=== PATIENT | female | born 1940 | race Caucasian/White ===

== ENCOUNTER 2016-05-31 20:16 | Emergency (ER) | payer MEDICARE, BC ==
[~2016-05-31] VITALS: Ht 154.9 cm; Wt 78.0 kg
[2016-05-31 20:35] VITALS: Ht 154.9 cm; Wt 78.0 kg
[2016-05-31] MEDS ORDERED: SOD CHLORIDE 0.9% 1,000 ML IV STA (23:16)
[2016-05-31] MEDS ORDERED: morphine 4 MG/ML VIAL IV STA (23:16)
[2016-05-31] MEDS ORDERED: ONDANSETRON 4 MG INJ IV STA (23:16)
[2016-06-01 00:39] LABS: ALBUMIN 4.8 g/dl (3.3-4.9)
[2016-06-01 00:40] LABS: POTASSIUM 3.9 mmol/L (3.5-5.1)
[2016-06-01 00:42] LABS: ADD UMIC YES; URINE BILIRUBIN (Dip) NEGATIVE (NEGATIVE); URINE BLOOD (Dip) 2+ (NEGATIVE); URINE COLOR LT. YELLOW (YELLOW); URINE GLUCOSE (Dip) NEGATIVE (NEGATIVE); URINE KETONES (Dip) TRACE (NEGATIVE); URINE LEUKOCYTE ESTERASE (Dip) TRACE (NEGATIVE); URINE NITRITE (Dip) NEGATIVE (NEGATIVE); URINE TOTAL PROTEIN (Dip) 1+ (NEGATIVE); URINE UROBILINOGEN (Dip) 0.2 E.U./dL (0.1-1.0)
[2016-06-01 00:42] LABS: ALBUMIN/GLOBULIN RATIO 1.23; BILIRUBIN,INDIRECT 0.6 mg/dl (0-1.1); BILIRUBIN,TOTAL 0.6 mg/dl (0.2-1.3); CREATININE 0.49 mg/dl (0.44-1.00); TOTAL PROTEIN 8.7 g/dl (6.1-8.1)
[2016-06-01 00:43] LABS: CALCIUM 9.9 mg/dl (8.4-10.2)
--- NOTE | 2016-06-01 00:53 | RADRPT ---
PROCEDURE: CT Abdomen and Pelvis without contrast. CLINICAL INDICATION: Pain. TECHNIQUE: CT scan of the abdomen and pelvis was performed on a multidetector slice CT scanner. N o intravenous contrast material was utilized. Sagittal and coronal reformatted images were obtained from the axial source images. Images were reviewed on a high-resolution PACS workstation. Exam CTDl vol = 15 mGy and DLP = 189 Gy-cm. COMPARISON: None. FINDINGS: There is no obstruction or ileus. The appendix is visualized and is normal in size. There is no ev idence for acute appendicitis. There is diffuse left and sigmoid colon diverticulosis without evide nce for diverticulitis. There is no free fluid. The liver is overall normal in size. No intrahepatic lesions are identified. Multiple calcified gal lstones are present within the gallbladder. The gallbladder is otherwise normal in appearance. There is no definite biliary ductal dilation. Pancreas is normal in appearance. Spleen is unremarkable. . There are no adrenal masses. The aorta is normal caliber. Kidneys are normal in appearance without hydronephrosis, mass or calculus. Ureters are of normal ca liber. Urinary bladder is partially contracted with nonspecific wall thickening.. Uterus unremarkable. Ovaries are not distinctly visualized. There are degenerative changes of the lumbar spine. Limited evaluation lung bases is unremarkable. IMPRESSION: 1. The left and sigmoid colon diverticulosis without evidence for acute diverticulitis. 2. No evidence for appendicitis. 3. No bowel obstruction or ileus. 4. Cholelithiasis. No CT evidence for acute cholecystitis for the biliary obstruction. 5. No obstructive uropathy. Partially contracted urinary bladder with nonspecific wall thickening. 6. Degenerative changes of the lumbar spine. RPTAT: HMVK .Juve Matias MD, MD Date Time Electronically viewed and signed by .Juve Matias MD, MD on 06/01/2016 00:52 .K/
[2016-06-01 01:12] LABS: BASOPHILS % 0.4 % (0.0-2.0); EOSINOPHILS % 0.2 % (0.0-7.0); HEMATOCRIT 42.3 % (37.0-47.0); HEMOGLOBIN 14.3 g/dl (12.0-16.0); LYMPHOCYTES # 0.8 10^3/ul (0.8-2.9); LYMPHOCYTES % 11.9 % (15.0-51.0); MEAN CORPUSCULAR HEMOGLOBIN 29.6 pg (29.0-33.0); MEAN CORPUSCULAR HGB CONC 33.9 g/dl (32.0-37.0); MEAN CORPUSCULAR VOLUME 87.5 fl (82.0-101.0); MEAN PLATELET VOLUME 7.8 fl (7.4-10.4); MONOCYTE # 0.3 10^3/ul (0.3-0.9); MONOCYTES % 4.6 % (0.0-11.0); NEUTROPHIL # 5.9 10^3/ul (1.6-7.5); NEUTROPHILS % 82.9 % (39.0-77.0); PLATELET COUNT 236 10^3/UL (140-440); RED BLOOD COUNT 4.83 10^6/ul (4.20-5.40); RED CELL DISTRIBUTION WIDTH 13.2 % (11.5-14.5); UNCORRECTED WBC 7.1 10^3/ul (4.8-10.8); WHITE BLOOD COUNT 7.1 10^3/ul (4.8-10.8)
[2016-06-01 01:16] LABS: CONDITION 1
[2016-06-01 01:18] LABS: SQUAMOUS EPITHELIAL CELL,UR FEW
[2016-06-01 01:19] LABS: BACTERIA,URINE MANY
--- NOTE | 2016-06-01 01:28 | ERD ---
ER Documentation Chief Complaint Date/Time DATE: 06/01/16 TIME: 01:23 Chief Complaint BACK PAIN X 1 DAY, WORSE TODAY AND WITH VOMITING; LAST ADVIL AT 1930. HPI Patient is a 75-year-old female here with son who presents to the ED with left low back pain that started yesterday. She states that she has had non-bloody non-bilious emesis today. She denies trauma. She states that the pain radiates to the front. She denies headache, dizziness or weakness. She denies chest pain, cough, shortness of breath or difficulty breathing. She denies urinary incontinence. She denies problems urinating or having a bowel movement. She denies constipation or diarrhea. She has had a bowel movement today and is passing gas. She states that she has had a previous UTI. She denies urinary symptoms, denies hematuria. No other complaints today. She has not taken any medication for her symptoms. ROS All systems reviewed and are negative except as per history of present illness. Medications Home Meds Active Scripts Acetaminophen* (Tylophen*) 500 Mg Capsule, 1 CAP PO Q6H Y for PAIN AND OR ELEVATED TEMP, #20 CAP Prov:JITENDRA VANN PA-C 06/01/16 Cephalexin* (Keflex*) 500 Mg Capsule, 500 MG PO QID for 5 Days, CAP Prov:JITENDRA VANN PA-C 06/01/16 Allergies Allergies: Coded Allergies: No Known Allergy (Unverified , 05/31/16) PMhx/Soc Medical and Surgical Hx: pt denies Medical Hx, pt denies Surgical Hx Hx Alcohol Use: No Hx Substance Use: No Hx Tobacco Use: No Smoking Status: Never smoker Physical Exam Vitals Vital Signs Date Time Temp Pulse Resp B/P Pulse Ox O2 Delivery O2 Flow Rate FiO2 06/01/16 02:19 98.0 62 20 157/72 98 Room Air 05/31/16 20:35 98.6 72 20 176/86 98 Physical Exam GENERAL: Well-developed, well-nourished female. Appears in no acute distress. HEAD: Normocephalic, atraumatic. NECK: Supple. No lymphadenopathy or thyromegaly. No meningismus. negative kernig. negative brudinski. LUNG: Clear to auscultation bilaterally. No rhonchi, wheezing, rales or coarse breath sounds. HEART: Regular rate and rhythm. No murmurs, rubs or gallops. ABDOMEN: No scars, ecchymosis or rashes noted. Soft, nontender, and nondistended. Positive bowel sounds in all four quadrants. No rebound tenderness , no guarding. (-) McBurneys point tenderness. Mild left CVA tenderness BACK: No midline tenderness. No step-offs deformities or signs of infection Extremities: Equal pulses bilaterally. No peripheral clubbing, cyanosis or edema. No unilateral leg swelling. Negative Homans sign NEUROLOGIC: Alert and oriented. Moving all four extremities. 5/5 strength in all extremities. Normal speech. Steady gait. SKIN: Normal color. Warm and dry. No rashes or lesions. Capillary refill < 2 seconds Result Diagram: 05/31/168 05/31/168 Results 24 hrs Laboratory Tests Test 05/31/16 23:45 05/31/16 23:48 Urine Bacteria MANY Urine Bilirubin NEGATIVE Urine Clarity SLIGHTLY CLOUDY Urine Color LT. YELLOW Urine Glucose NEGATIVE% Urine Hemoglobin 2+ Urine Ketones TRACE Urine Leukocyte Esterase TRACE Urine Microscopic RBC 10-25/HPF Urine Microscopic WBC 2-5/HPF Urine Nitrite NEGATIVE Urine Specific [place] 1.025 Urine Squamous Epithelial Cells FEW Urine Total Protein 1+ Urine Urobilinogen 0.2 E.U./dL Urine pH 7.0 Alanine Aminotransferase (ALT/SGPT) 47IU/L Albumin 4.8g/dl Albumin/Globulin Ratio 1.23 Alkaline Phosphatase 106IU/L Anion Gap 19 Aspartate Amino Transf (AST/SGOT) 32IU/L Basophils # 0.010^3/ul Basophils % 0.4% Blood Urea Nitrogen 10mg/dl Calcium Level 9.9mg/dl Carbon Dioxide Level 27mmol/L Chloride Level 94mmol/L Creatinine 0.49mg/dl Direct Bilirubin 0.00mg/dl Eosinophils # 0.010^3/ul Eosinophils % 0.2% Globulin 3.90g/dl Glucose Level 130mg/dl Hematocrit 42.3% Hemoglobin 14.3g/dl Indirect Bilirubin 0.6mg/dl Lipase 68U/L Lymphocytes # 0.810^3/ul Lymphocytes % 11.9% Mean Corpuscular Hemoglobin 29.6pg Mean Corpuscular Hemoglobin Concent 33.9g/dl Mean Corpuscular Volume 87.5fl Mean Platelet Volume 7.8fl Monocytes # 0.310^3/ul Monocytes % 4.6% Neutrophils # 5.910^3/ul Neutrophils % 82.9% Nucleated Red Blood Cells # 0.010^3/ul Nucleated Red Blood Cells % 0.0/100WBC Platelet Count 12993^3/UL Potassium Level 3.9mmol/L Red Blood Count 4.8310^6/ul Red Cell Distribution Width 13.2% Sodium Level 136mmol/L Total Bilirubin 0.6mg/dl Total Protein 8.7g/dl White Blood Count 7.110^3/ul Current Medications Medications (Trade) Dose Ordered Sig/David Route PRN Reason Start Time Stop Time Status Last Admin Dose Admin Sodium Chloride (NS) 1,000 ml @ 1,000 mls/hr Q1H STAT IV 05/31/16 23:16 06/01/16 00:15 DC 06/01/16 00:06 Morphine Sulfate (morphine) 4 mg ONCE STAT IV 05/31/16 23:16 05/31/16 23:17 DC 06/01/16 00:06 Ondansetron HCl (Zofran Inj) 4 mg ONCE STAT IV 05/31/16 23:16 05/31/16 23:17 DC 06/01/16 00:06 Procedures/MDM ER COURSE: I kept the patient and/or family informed of laboratory and diagnostic imaging results throughout the emergency room course. EKG, MONITORS, & DIAGNOSTIC IMAGING: [place] [id number] Radiology Main Line: [phone] DIAGNOSTIC IMAGING REPORT Patient: LEXY CLARK : 1940 Age: 75 Sex: F MR #: [id number] DOS: 05/31/16 2316 Ordering MD: JITENDRA VANN PA-C Location: [facility] Room/Bed: PROCEDURE: CT Abdomen and Pelvis without contrast. CLINICAL INDICATION: Pain. TECHNIQUE: CT scan of the abdomen and pelvis was performed on a multidetector slice CT scanner. No intravenous contrast material was utilized. Sagittal and coronal reformatted images were obtained from the axial source images. Images were reviewed on a high-resolution PACS workstation. Exam CTDlvol = 15 mGy and DLP = 189 Gy-cm. COMPARISON: None. FINDINGS: There is no obstruction or ileus. The appendix is visualized and is normal in size. There is no evidence for acute appendicitis. There is diffuse left and sigmoid colon diverticulosis without evidence for diverticulitis. There is no free fluid. The liver is overall normal in size. No intrahepatic lesions are identified. Multiple calcified gallstones are present within the gallbladder. The gallbladder is otherwise normal in appearance. There is no definite biliary ductal dilation. Pancreas is normal in appearance. Spleen is unremarkable.. There are no adrenal masses. The aorta is normal caliber. Kidneys are normal in appearance without hydronephrosis, mass or calculus. Ureters are of normal caliber. Urinary bladder is partially contracted with nonspecific wall thickening.. Uterus unremarkable. Ovaries are not distinctly visualized. There are degenerative changes of the lumbar spine. Limited evaluation lung bases is unremarkable. IMPRESSION: 1. The left and sigmoid colon diverticulosis without evidence for acute diverticulitis. 2. No evidence for appendicitis. 3. No bowel obstruction or ileus. 4. Cholelithiasis. No CT evidence for acute cholecystitis for the biliary obstruction. 5. No obstructive uropathy. Partially contracted urinary bladder with nonspecific wall thickening. 6. Degenerative changes of the lumbar spine. RPTAT: HMVK .Juve Matias MD, MD Date Time Electronically viewed and signed by .Juve Matias MD, MD on 06/01/2016 00:52 .K/ CC: JITENDRA VANN PA-C MEDICATIONS: morphine, zofran. patient tolerated medication well with no adverse reaction. patient stated improvement in symtoms. LAB INTERPRETATION: CBC showed no evidence of systemic infection or severe anemia. CMP showed no evidence of electrolyte abnormalities, severe acidosis, alkalosis , renal failure, or liver disease. Lipase showed no evidence of acute pancreatitis. UA showed trace leukocytes. MEDICAL DECISION MAKING: This is a 75-year-old who presents with back pain. Vital signs were reviewed. Patient is afebrile. Patient is not hypoxic. Patient is not toxic or ill- appearing. Patient has a UTI. Low suspicion for ovarian torsion, PID, tuboovarian abscess, ectopic , bowel obstruction, pyelonephritis, appendicitis, UTI, nephroliathisis, septic stone, obstructed stone. Low suspicion for ACS, AAA, perforated ulcer, bowel obstruction, cholecystitis, choledocholithiasis, cholangitis, pancreatitis, hepatic abscess, appendicitis, diverticulitis, nephrolithiasis, septic stone, obstructed stone. I have low suspicion for any cardiac emergency as she does not have any chest pain. DISCHARGE: At this time, patient is stable for discharge and outpatient management with no new complaints during the ER course. Patient was sent home with cipro and tylenol. Patient will be discharged home with instructions to recheck for new or worsening symptoms such as fever, nausea, weakness, LOC and to follow up with primary care in the next 1-2 days. Patient was advised to return to the ER for any new or worsening symptoms. Plan was discussed and patient and/or family understands and agrees. Home instructions were given. Departure Diagnosis: Primary Impression: Back pain Back pain location: back pain in unspecified location Chronicity: unspecified Back pain laterality: unspecified Qualified Code: M54.9 - Back pain, unspecified back location, unspecified back pain laterality, unspecified chronicity Condition: Stable JITENDRA VANN PA-C Jun 01, 2016 01:28
[2016-06-01] MEDS ORDERED: CEPH-443 PO (02:06)
[2016-06-01] MEDS ORDERED: ACET500C5 PO (02:09)
[2016-06-01 02:19] VITALS: BP 157/72; PULSE 62; RESP 20; TEMP 98
== END 2016-06-01 02:32 | disposition home or self-care (01) ==
LOC: FTE 20:16
DX: M54.5 Low back pain (principal); R11.10 Vomiting, unspecified
CPT/HCPCS: 36415; 74176; 80053; 81001; 81003; 83690; 85025; 96374; 96375; 99285; J2270; J2405; J7030

== ENCOUNTER 2016-06-03 20:46 | Observation (INO) | payer MEDICARE, BC ==
[~2016-06-03] VITALS: Ht 152.4 cm; Wt 78.0 kg
[~2016-06-03 20:46] MED LIST: ACET500C5 PO; CEPH-443 PO
[2016-06-03 20:59] VITALS: Ht 152.4 cm; Wt 78.0 kg
[2016-06-03] MEDS ORDERED: ONDANSETRON 4 MG INJ IV STA (21:26)
[2016-06-03] MEDS ORDERED: SOD CHLORIDE 0.9% 500 ML IV STA (21:26)
[2016-06-03] MEDS ORDERED: morphine 4 MG/ML VIAL IV STA (21:26)
--- NOTE | 2016-06-03 21:35 | ERA ---
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 The patient presents with several days of right-sided back and flank pain. She describes it as dull and throbbing, now more severe and worse with any rotational or bending movements. She denies any migratory pain or fevers or chills. The patient was seen here 2 days ago and diagnosed with a possible urinary tract infection. However the patient has been vomiting during this timeframe and has not been able to take the medications. The vomiting has since stopped with the pain is persistent. The Tylenol is not alleviating her pain. She denies any shortness of breath or pleuritic pain, no chest pain, no rash. She states regular bowel movements without constipation or diarrhea. No recent falls. ROS All systems reviewed and are negative except as per history of present illness. Medications Home Meds Active Scripts Acetaminophen* (Tylophen*) 500 Mg Capsule, 1 CAP PO Q6H Y for PAIN AND OR ELEVATED TEMP, #20 CAP Prov:JITENDRA VANN PA-C 06/01/16 Cephalexin* (Keflex*) 500 Mg Capsule, 500 MG PO QID for 5 Days, CAP Prov:JITENDRA VANN PA-C 06/01/16 Allergies Allergies: Coded Allergies: No Known Allergy (Unverified , 05/31/16) PMhx/Soc Hx Alcohol Use: No Hx Substance Use: No Hx Tobacco Use: No FmHx Family History: No diabetes Physical Exam Vitals Vital Signs Date Time Temp Pulse Resp B/P Pulse Ox O2 Delivery O2 Flow Rate FiO2 06/03/16 23:14 59 18 119/65 95 Room Air 06/03/16 20:59 98.2 62 20 129/61 99 Physical Exam General: Uncomfortable but no significant distress Head: Normocephalic, atraumatic. Eyes: Pupils equally reactive, EOM intact ENT: Moist mucous membranes Neck: Supple, no lymphadenopathy Respiratory: Lungs clear bilaterally, no distress Cardiovascular: RRR, no murmurs, rubs, or gallops Abdominal: Soft, non-tender, non-distended, no peritoneal signs, no tenderness to McBurney's point, negative Miner sign Back: Reproducible soft tissue tenderness to the thoracolumbar spine, right- sided paraspinal muscles without midline tenderness deformities or step-offs : Deferred MSK: No edema, no unilateral swelling, 5/5 strength Neurologic: Alert and oriented, moving all extremities, normal speech, no focal weakness, no cerebellar signs Skin: No rash Psych: Normal mood Result Diagram: 06/03/16215406/03/162154 Results 24 hrs Laboratory Tests Test 06/03/16 21:51 06/03/16 21:55 Urine Bacteria FEW Urine Bilirubin NEGATIVE Urine Calcium Oxalate Crystals OCCASIONAL Urine Clarity CLEAR Urine Color LT. YELLOW Urine Glucose NEGATIVE% Urine Hemoglobin 1+ Urine Ketones NEGATIVE Urine Leukocyte Esterase TRACE Urine Microscopic RBC 2-5/HPF Urine Microscopic WBC 10-25/HPF Urine Nitrite NEGATIVE Urine Specific [place] 1.010 Urine Squamous Epithelial Cells MODERATE Urine Total Protein NEGATIVE Urine Urobilinogen 1.0 E.U./dL Urine pH 6.0 Activated Partial Thromboplast Time 30.9Sec Alanine Aminotransferase (ALT/SGPT) 35IU/L Albumin 3.8g/dl Albumin/Globulin Ratio 1.18 Alkaline Phosphatase 90IU/L Anion Gap 15 Aspartate Amino Transf (AST/SGOT) 28IU/L Basophils # 0.010^3/ul Basophils % 0.4% Blood Morphology Comment Blood Urea Nitrogen 17mg/dl Calcium Level 9.4mg/dl Carbon Dioxide Level 30mmol/L Chloride Level 98mmol/L Creatinine 0.71mg/dl Direct Bilirubin 0.00mg/dl Eosinophils # 0.010^3/ul Eosinophils % 0.8% Globulin 3.20g/dl Glucose Level 101mg/dl Hematocrit 38.8% Hemoglobin 12.9g/dl INR International Normalized Ratio 0.95 Indirect Bilirubin 0.2mg/dl Lipase 180U/L Lymphocytes # 1.510^3/ul Lymphocytes % 29.3% Mean Corpuscular Hemoglobin 29.2pg Mean Corpuscular Hemoglobin Concent 33.1g/dl Mean Corpuscular Volume 88.0fl Mean Platelet Volume 7.3fl Monocytes # 0.510^3/ul Monocytes % 10.1% Neutrophils # 3.010^3/ul Neutrophils % 59.4% Nucleated Red Blood Cells # 0.010^3/ul Nucleated Red Blood Cells % 0.0/100WBC Platelet Count 77847^3/UL Potassium Level 3.8mmol/L Prothrombin Time 12.7Sec Prothrombin Time Ratio 1.0 Red Blood Count 4.4110^6/ul Red Cell Distribution Width 13.6% Sodium Level 139mmol/L Total Bilirubin 0.2mg/dl Total Protein 7.0g/dl White Blood Count 5.010^3/ul Current Medications Medications (Trade) Dose Ordered Sig/David Route PRN Reason Start Time Stop Time Status Last Admin Dose Admin Sodium Chloride (NS) 500 ml @ 500 mls/hr Q1H STAT IV 06/03/16 21:26 06/03/16 22:25 DC 06/03/16 22:01 Morphine Sulfate (morphine) 4 mg ONCE STAT IV 06/03/16 21:26 06/03/16 21:34 DC 06/03/16 22:00 Ondansetron HCl 4 mg 4 mg ONCE STAT IV 06/03/16 21:26 06/03/16 21:34 DC 06/03/16 22:00 Ceftriaxone Sodium (Rocephin) 50 ml @ 100 mls/hr ONCE ONCE IVPB 06/04/16 00:00 06/04/16 00:29 Procedures/MDM EKG, MONITORS, & DIAGNOSTIC IMAGING: Chest x-ray: I reviewed and interpreted a 1 view of the chest Mediastinum: No enlargement Cardiac silhouette: No cardiomegaly Airspace: Clear lung mccl[place] bilaterally without evidence of pneumothorax Bones: No evidence of fracture CT abdomen and pelvis: IMPRESSION: 1. No evidence for acute intra-abdominal or pelvic pathology. 2. Diverticulosis without evidence for acute diverticulitis. 3. Cholelithiasis without evidence for acute cholecystitis. 4. Small hiatal hernia 5. No evidence for nephroureterolithiasis or hydroureteronephrosis. 6. Mild degenerative changes of the imaged spine. X-ray thoracic spine: Radiologist report shows no evidence of fracture X-ray lumbar spine: Radiologist report shows no evidence of fracture LAB INTERPRETATION: No significant leukocytosis, possible UTI MEDICAL DECISION MAKING: The patient has back pain. I believe that her back pain is more consistent with muscular skeletal pain versus lumbar or thoracic radiculopathy given the location of pain in the reproducible nature especially with palpation and rotational movements. She has no evidence of shingles. Her symptoms are nonmigratory and not consistent with acute aortic dissection. The concerning thing is that the patient had vomiting associated with this. It could represent pyelonephritis with the patient does not have a fever and her urinalysis was borderline during her visit 2 days ago. However the patient has not been able to tolerate her antibiotics. It does not seem to be consistent with cardiopulmonary process or pulmonary embolism given limited respiratory symptoms and no significant pleuritic pain and no vital signs to match. However, given the patient's age she is at risk for delayed or missed diagnoses and I do believe she would benefit from repeat CT imaging including x-ray of the thoracolumbar spine and chest x-ray. The patient will be given pain medication. Pain cannot be controlled consider inpatient hospitalization. ER COURSE: The patient still has mild pain but improved with morphine. The patient's urine shows possible UTI however the patient does state that she tolerated single dose of antibiotic. The patient's CT imaging and laboratory testing is otherwise unrevealing. At this time unclear etiology to the patient's symptoms , still consider possible musculoskeletal. It could be theoretically related to pyelonephritis but lower clinical concern for this. The patient was given a dose of ceftriaxone. She feels uncomfortable going home given persistent pain. Inpatient observation would be reasonable. I kept the patient and/or family informed of laboratory and diagnostic imaging results throughout the emergency room course. DISPOSITION PLAN: Medical surgical admission for observation CONSULTATION: Accepting care team and consultations: I discussed the current laboratory data, diagnostic imaging and emergency care provided. Admitting team: Dr. Aguilar Admitting team indication: Insurance directed Departure Diagnosis: Primary Impression: Flank pain Additional Impression: Urinary tract infection Qualified Code: N39.0 - Urinary tract infection without hematuria, site unspecified Condition: Stable PALMA CAROLINA MD Jun 03, 2016 21:35
[2016-06-03 22:10] LABS: BASOPHILS % 0.4 % (0.0-2.0); EOSINOPHILS % 0.8 % (0.0-7.0); HEMATOCRIT 38.8 % (37.0-47.0); HEMOGLOBIN 12.9 g/dl (12.0-16.0); LYMPHOCYTES # 1.5 10^3/ul (0.8-2.9); LYMPHOCYTES % 29.3 % (15.0-51.0); MEAN CORPUSCULAR HEMOGLOBIN 29.2 pg (29.0-33.0); MEAN CORPUSCULAR HGB CONC 33.1 g/dl (32.0-37.0); MEAN PLATELET VOLUME 7.3 fl (7.4-10.4); MONOCYTE # 0.5 10^3/ul (0.3-0.9); MONOCYTES % 10.1 % (0.0-11.0); NEUTROPHILS % 59.4 % (39.0-77.0); PLATELET COUNT 225 10^3/UL (140-440); RED BLOOD COUNT 4.41 10^6/ul (4.20-5.40); RED CELL DISTRIBUTION WIDTH 13.6 % (11.5-14.5)
[2016-06-03 22:19] LABS: INR 0.95; PROTIME 12.7 Sec (12.2-14.2)
[2016-06-03 22:20] LABS: PARTIAL THROMBOPLASTIN TIME 30.9 Sec (25.0-35.0)
[2016-06-03 22:27] LABS: CONDITION 1
[2016-06-03 22:29] LABS: ALBUMIN 3.8 g/dl (3.3-4.9)
--- NOTE | 2016-06-03 22:29 | RADRPT ---
PROCEDURE: XR Chest. CLINICAL INDICATION: Abdominal Pain TECHNIQUE: Single portable view of the chest was obtained COMPARISON: None FINDINGS: The heart is enlarged. The lungs are clear. There is no pleural effusion or pneumothorax. IMPRESSION: Mild Cardiomegaly. RPTAT: [facility]U Physician Danny Date Time Electronically viewed and signed by Physician Danny on 06/03/2016 22:28 RS/
[2016-06-03 22:30] LABS: POTASSIUM 3.8 mmol/L (3.5-5.1)
[2016-06-03 22:32] LABS: ALBUMIN/GLOBULIN RATIO 1.18; BILIRUBIN,INDIRECT 0.2 mg/dl (0-1.1); BILIRUBIN,TOTAL 0.2 mg/dl (0.2-1.3); CREATININE 0.71 mg/dl (0.44-1.00)
[2016-06-03 22:33] LABS: CALCIUM 9.4 mg/dl (8.4-10.2)
[2016-06-03 22:33] LABS: ADD UMIC YES; URINE BILIRUBIN (Dip) NEGATIVE (NEGATIVE); URINE BLOOD (Dip) 1+ (NEGATIVE); URINE COLOR LT. YELLOW (YELLOW); URINE GLUCOSE (Dip) NEGATIVE (NEGATIVE); URINE KETONES (Dip) NEGATIVE (NEGATIVE); URINE LEUKOCYTE ESTERASE (Dip) TRACE (NEGATIVE); URINE NITRITE (Dip) NEGATIVE (NEGATIVE); URINE TOTAL PROTEIN (Dip) NEGATIVE (NEGATIVE); URINE UROBILINOGEN (Dip) 1.0 E.U./dL (0.1-1.0)
--- NOTE | 2016-06-03 22:40 | RADRPT ---
PROCEDURE: X-ray thoracic spine CLINICAL INDICATION: Right back pain TECHNIQUE: 2 views of the thoracic spine. COMPARISON: None. FINDINGS: No acute fracture or dislocation. Mild demineralization with mild degenerative changes and small ant erior endplate osteophytes. Soft tissues unremarkable. IMPRESSION: No acute fracture. RPTAT: UU Physician Danny Date Time Electronically viewed and signed by Aneudy Mcgovern Physician on 06/03/2016 22:40 RS/
--- NOTE | 2016-06-03 22:41 | RADRPT ---
PROCEDURE: X-ray lumbar spine. CLINICAL INDICATION: Right back pain TECHNIQUE: 3 views lumbar spine. COMPARISON: None. FINDINGS: Demineralization. Mild disk space narrowing scattered throughout the lumbar spine, greater at the T 12-L1 and L5-S1 levels. Otherwise, there is no significant disk space narrowing. Small anterior en dplate osteophytes is seen throughout the lumbar spine and at the T12-L1 level, greater at the T12-L 1 level. No acute fracture or dislocation. Posterior facet degenerative changes seen at the L3-S1 levels, greater at the L5-S1 level. Soft tissues unremarkable. IMPRESSION: Degenerative changes, without acute fracture. RPTAT: UU. Physician Danny Date Time Electronically viewed and signed by Physician Danny on 06/03/2016 22:41 RS/
[2016-06-03 22:48] LABS: BACTERIA,URINE FEW; SQUAMOUS EPITHELIAL CELL,UR MODERATE
--- NOTE | 2016-06-03 22:53 | RADRPT ---
PROCEDURE: CT abdomen and pelvis without contrast. CLINICAL INDICATION: Abdominal pain and right flank pain TECHNIQUE: CT scan of the abdomen and pelvis without contrast was performed on a multislice CT [facility] utilizing axial imaging from the lung bases through the pubis symphysis. The patient was scann ed without intravenous contrast. Sagittal and coronal reformatted images were made. The CTDIvol is 14.60 mGy and the DLP is 805.84 mGycm. One of the following 3 dose reduction techniques were used during this CT examination: automated exp osure control; adjustment of the mA and /or kV according to patient size; or use of iterative recons truciton technique. COMPARISON: Abdomen and pelvic CT dated 05/31/2016 FINDINGS: The lung bases are clear. The visualized heart size is normal. No pericardial or pleural effusions are present. A small hiatal hernia is present. The visualized liver, spleen, pancreas, and bilateral adrenal glands are normal. The gallbladder de monstrates cholelithiasis without evidence for acute cholecystitis. No evidence for intrahepatic or extrahepatic biliary ductal dilatation is noted. The bilateral kidneys are normal. No evidence for hydroureter nephrosis or nephroureterolithiasis i s present. The imaged aorta demonstrates no evidence for aneurysmal dilatation. The colon demonstrates mild diverticulosis without evidence for acute diverticulitis. The appendix is normal and no evidence for appendicitis is noted. The visualized pelvis is normal with mild distension of the urinary bladder. The visualized uterus and bilateral adnexa are normal. No evidence for masses or pathologic lymphadenopathy is present. No pneumoperitoneum or ascites is present. The osseous structures demonstrate mild degenerative changes of the imaged spine. IMPRESSION: 1. No evidence for acute intra-abdominal or pelvic pathology. 2. Diverticulosis without evidence for acute diverticulitis. 3. Cholelithiasis without evidence for acute cholecystitis. 4. Small hiatal hernia 5. No evidence for nephroureterolithiasis or hydroureteronephrosis. 6. Mild degenerative changes of the imaged spine. RPTAT: HDC .Beatriz Padgett MD, MD Date Time Electronically viewed and signed by .Beatriz Padgett MD, MD on 06/03/2016 22:53 .C/
[2016-06-04] MEDS ORDERED: CEFTRIAXONE 1 GM/50 ML (PMX) 50 ML IVPB ONE
[2016-06-04] MEDS ORDERED: ACETAMINOPHEN 325 MG TAB PO PRN (00:30)
[2016-06-04] MEDS ORDERED: ONDANSETRON 4 MG INJ IV PRN (00:30)
[2016-06-04 00:34] VITALS: PULSE 57
[2016-06-04 01:32] VITALS: BP 127/59; RESP 20
[2016-06-04] MEDS ORDERED: morphine 10 MG INJ IM PRN (02:00)
[2016-06-04] MEDS ORDERED: MAGNESIUM HYDROXIDE 30ML CUP PO ONE (02:00)
[2016-06-04] MEDS: morphine 4 MG/ML VIAL IV PRN ×2 (02:37→07:51)
[2016-06-04] MEDS: SOD CHLORIDE 0.9% 1,000 ML IV SCH ×4 (02:37→22:00)
--- NOTE | 2016-06-04 07:50 | HP ---
DATE OF ADMISSION: 06/04/2016 TIME SEEN: 2300 hours. CHIEF COMPLAINT: Right flank pain. HISTORY OF PRESENT ILLNESS: The patient is a 75-year-old female with no significant past medical hi story except a breast cyst removal and hernia repair, who presented to the emergency department with right flank pain. She was actually here in the ER for lower back pain and right flank pain 2 days ago and was discharged with probable diagnosis of UTI. The patient, however, was not able to take h er antibiotic and pain medication effectively because she had been experiencing nonbloody, nonbiliou s vomiting. She denied any fever, chills, chest pain, shortness of breath. When she presented to [facility] ER at this time, her vitals were stable. Basic labs were also within normal limits. CT abdomen and pelvis showed the chest cholelithiasis without evidence of cholecystitis. Her urinalysis was co nsistent with UTI. The patient has been given pain medication, IV fluids and started on antibiotic and admitted with a diagnosis of pyelonephritis. REVIEW OF SYSTEMS: A 12-point review of systems performed is negative except as mentioned in HPI. PAST MEDICAL HISTORY: As per HPI. PAST SURGICAL HISTORY: Hernia repair and right breast cyst removal. SOCIAL HISTORY: Denied history of tobacco, alcohol or illicit drug use. ALLERGIES: NO KNOWN DRUG ALLERGIES. HOME MEDICATIONS: Two days ago, she was given a prescription for Keflex and Tylenol, but has not bee n taking these because of vomiting. PHYSICAL EXAMINATION: VITAL SIGNS: Stable. GENERAL: No acute distress. 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 HEENT: No obvious head deformity. There is a small nodule in her congregational. Pupils are reactive to l ight. Extraocular muscles intact. CARDIOVASCULAR: Regular rate and rhythm. No extra heart sounds. LUNGS: Clear. ABDOMEN: Soft. There is mild tenderness in the right flank area. EXTREMITIES: No edema. NEUROLOGIC: No focal deficits. LABORATORY: CBC and BMP within normal limits. IMPRESSION: 1. Pyelonephritis. 2. Right flank/ low back pain, secondary to above. PLAN: We will continue IV antibiotic. We will follow up on the urine culture and blood culture res ults. She will be provided pain medication and antiemetic as needed. She will also receive IV flui ds. Further workup and management per clinical course. Dictated By: TIMO MARTIN/ANGELA Conf#: [id number] [facility]#: [id number]
[2016-06-04 08:26] VITALS: BP 115/60; RESP 20
[2016-06-04] MEDS: SENNA TAB PO SCH (08:31)
[2016-06-04] MEDS: CEFEPIME 2GM/50 ML (PMX) 50 ML IVPB SCH ×2 (08:31→20:49)
[2016-06-04] MEDS: HEPARIN 5,000 UNIT/0.5 ML SYG SC SCH ×2 (08:40→20:52)
--- NOTE | 2016-06-04 14:25 | PN ---
Date/Time of Note Date/Time of Note DATE: 06/04/16 TIME: 14:23 Assessment/Plan VTE Prophylaxis VTE Prophylaxis Intervention: SCD's Lines/Catheters IV Catheter Type (from [facility]): Peripheral IV Urinary Cath still in place: No Assessment/Plan Chief Complaint/Hosp Course Assessment and plan 1. Pyelonephritis. Continue on antibiotic. Follow-up on urine culture. Of note CT scan of the abdomen showed no evidence of nephrolithiasis. Continue analgesics as needed. Continue IV hydration DVT prophylaxis: SCDs and early ambulation Disposition and plan: Continue on antibiotics. Await urine culture. Await clinical improvement of pyelonephritis Discussed plan of care with Dr. Chung Problems: Subjective 24 Hr Interval Summary Free Text/Dictation Still reports having some right flank pain. Exam/Review of Systems Vital Signs Vitals Vital Signs Date Time Temp Pulse Resp B/P Pulse Ox O2 Delivery O2 Flow Rate FiO2 06/04/16 08:26 98.5 60 20 115/60 95 06/04/16 00:34 Room Air Intake and Output 06/03/16 06/03/16 06/04/16 14:59 22:59 06:59 Intake Total 500 ml 710 ml Output Total 500 ml Balance 500 ml 210 ml Exam General: Minimal distress noted with pain on right flank Eyes: pupils equal round, Anicteric sclera Neck: Supple nontender, no JVD Cardiac: S1, S2 auscultated, regular rhythm and rate Pulmonary: No coarse rhonchi or breathing auscultated GI: Slightly tender on right flank Extremities: No edema bilateral lower extremities Skin: Clean dry and intact Neurologic: Alert to person place and time and situation Results Result Diagram: 06/03/16215406/03/162154 Results 24 hrs Laboratory Tests Test 06/03/16 21:51 06/03/16 21:55 Urine Bacteria FEW Urine Bilirubin NEGATIVE Urine Calcium Oxalate Crystals OCCASIONAL Urine Clarity CLEAR Urine Color LT. YELLOW Urine Glucose NEGATIVE Urine Hemoglobin 1+ H Urine Ketones NEGATIVE Urine Leukocyte Esterase TRACE H Urine Microscopic RBC 2-5 Urine Microscopic WBC 10-25 Urine Nitrite NEGATIVE Urine Specific [place] 1.010 Urine Squamous Epithelial Cells MODERATE Urine Total Protein NEGATIVE Urine Urobilinogen 1.0 E.U./dL Urine pH 6.0 Activated Partial Thromboplast Time 30.9 Alanine Aminotransferase (ALT/SGPT) 35 Albumin 3.8 Albumin/Globulin Ratio 1.18 Alkaline Phosphatase 90 Anion Gap 15 Aspartate Amino Transf (AST/SGOT) 28 Basophils # 0.0 Basophils % 0.4 Blood Morphology Comment Blood Urea Nitrogen 17 Calcium Level 9.4 Carbon Dioxide Level 30 Chloride Level 98 Creatinine 0.71 Direct Bilirubin 0.00 Eosinophils # 0.0 Eosinophils % 0.8 Globulin 3.20 Glucose Level 101 Hematocrit 38.8 Hemoglobin 12.9 INR International Normalized Ratio 0.95 Indirect Bilirubin 0.2 Lipase 180 Lymphocytes # 1.5 Lymphocytes % 29.3 Mean Corpuscular Hemoglobin 29.2 Mean Corpuscular Hemoglobin Concent 33.1 Mean Corpuscular Volume 88.0 Mean Platelet Volume 7.3 L Monocytes # 0.5 Monocytes % 10.1 Neutrophils # 3.0 Neutrophils % 59.4 Nucleated Red Blood Cells # 0.0 Nucleated Red Blood Cells % 0.0 Platelet Count 225 Potassium Level 3.8 Prothrombin Time 12.7 Prothrombin Time Ratio 1.0 Red Blood Count 4.41 Red Cell Distribution Width 13.6 Sodium Level 139 Total Bilirubin 0.2 Total Protein 7.0 White Blood Count 5.0 # Medications Medications Current Medications Sodium Chloride (NS) 1,000 ml @ 100 mls/hr Q10H IV Last administered on 02:37; Admin Dose 100 MLS/HR; Start 06/04/16 at 02:00; Stop 06/05/16 at 02: 00 Heparin Sodium (Porcine) (Heparin (5000 Units/0.5 ml)) 5,000 unit Q12 SC Last administered on 06/04/16 08:40; Admin Dose 5,000 UNIT; Start 06/04/16 at 09:00 Senna 2 tab 2 tab DAILY PO Last administered on 06/04/16 08:31; Admin Dose 2 TAB; Start 06/04/16 at 09:00 Cefepime HCl (Maxipime 2gm/50 ml (Pmx)) 50 ml @ 100 mls/hr Q12 IVPB Last administered on 06/04/16 08:31; Admin Dose 100 MLS/HR; Start 06/04/16 at 09:00 Morphine Sulfate (morphine) 3 mg Q4H PRN IV PAIN Last administered on 07:51; Admin Dose 3 MG; Start 06/04/16 at 02:30 Acetaminophen/ Hydrocodone Bitart ([place] (7.5-325)) 2 tab Q4H PRN PO pain; Start 06/04/16 at 11:30 TRISHA SOLER Jun 04, 2016 14:25
[2016-06-04 19:29] VITALS: BP 116/56; RESP 18
[2016-06-04] MEDS: HYDROCODONE/APAP (7.5/325) TAB PO PRN (20:57)
[2016-06-05 07:29] VITALS: BP 124/72; RESP 20
[2016-06-05 07:38] LABS: POTASSIUM 4.2 mmol/L (3.5-5.1)
[2016-06-05 07:40] LABS: CREATININE 0.62 mg/dl (0.44-1.00)
[2016-06-05 07:41] LABS: CALCIUM 8.9 mg/dl (8.4-10.2)
[2016-06-05 08:00] LABS: BASOPHILS % 0.5 % (0.0-2.0); EOSINOPHILS # 0.1 10^3/ul (0.0-0.5); EOSINOPHILS % 1.5 % (0.0-7.0); HEMATOCRIT 32.5 % (37.0-47.0); HEMOGLOBIN 10.9 g/dl (12.0-16.0); LYMPHOCYTES # 1.3 10^3/ul (0.8-2.9); LYMPHOCYTES % 33.5 % (15.0-51.0); MEAN CORPUSCULAR HEMOGLOBIN 29.8 pg (29.0-33.0); MEAN CORPUSCULAR HGB CONC 33.5 g/dl (32.0-37.0); MEAN PLATELET VOLUME 8.2 fl (7.4-10.4); MONOCYTE # 0.3 10^3/ul (0.3-0.9); MONOCYTES % 7.2 % (0.0-11.0); NEUTROPHIL # 2.2 10^3/ul (1.6-7.5); NEUTROPHILS % 57.3 % (39.0-77.0); PLATELET COUNT 190 10^3/UL (140-440); RED BLOOD COUNT 3.65 10^6/ul (4.20-5.40); RED CELL DISTRIBUTION WIDTH 13.4 % (11.5-14.5); UNCORRECTED WBC 3.8 10^3/ul (4.8-10.8); WHITE BLOOD COUNT 3.8 10^3/ul (4.8-10.8)
[2016-06-05 08:04] LABS: CONDITION 1
[2016-06-05] MEDS: morphine 4 MG/ML VIAL IV PRN (08:14)
[2016-06-05] MEDS: CEFEPIME 2GM/50 ML (PMX) 50 ML IVPB SCH ×2 (08:19→20:14)
[2016-06-05] MEDS: SENNA TAB PO SCH (08:25)
[2016-06-05] MEDS: HEPARIN 5,000 UNIT/0.5 ML SYG SC SCH ×2 (09:00→20:23)
[2016-06-05] MEDS: HYDROCODONE/APAP (7.5/325) TAB PO PRN ×2 (09:39→17:25)
--- NOTE | 2016-06-05 12:00 | PN ---
Date/Time of Note Date/Time of Note DATE: 06/05/16 TIME: 11:59 Assessment/Plan VTE Prophylaxis VTE Prophylaxis Intervention: SCD's Lines/Catheters IV [facility] Type (from [facility]): Peripheral IV Urinary Cath still in place: No Assessment/Plan Chief Complaint/Hosp Course Assessment and plan 1. Pyelonephritis. Continue on antibiotic. Follow-up on urine culture. Of note CT scan of the abdomen showed no evidence of nephrolithiasis. Continue analgesics as needed. Continue IV hydration DVT prophylaxis: SCDs and early ambulation Disposition and plan: Continue on antibiotics. Continue with analgesics. Likely clinical improvement of pyelonephritis Discussed plan of care with Dr. Cuhng Problems: Subjective 24 Hr Interval Summary Free Text/Dictation Still with reported right flank pain. No fevers noted at time Exam/Review of Systems Vital Signs Vitals Vital Signs Date Time Temp Pulse Resp B/P Pulse Ox O2 Delivery O2 Flow Rate FiO2 06/05/16 07:29 98.5 71 20 124/72 98 06/04/16 00:34 Room Air Intake and Output 06/04/16 06/04/16 06/05/16 15:00 23:00 07:00 Intake Total 50 ml 2040 ml 1270 ml Balance 50 ml 2040 ml 1270 ml Exam General: Minimal distress noted with pain on right flank Eyes: pupils equal round, Anicteric sclera Neck: Supple nontender, no JVD Cardiac: S1, S2 auscultated, regular rhythm and rate Pulmonary: No coarse rhonchi or breathing auscultated GI: Slightly tender on right flank Extremities: No edema bilateral lower extremities Skin: Clean dry and intact Neurologic: Alert to person place and time and situation Results Result Diagram: 06/05/16 0507 06/05/16 0507 Results 24 hrs Laboratory Tests Test 06/05/16 05:07 Anion Gap 11 Basophils # 0.0 Basophils % 0.5 Blood Urea Nitrogen 16 Calcium Level 8.9 Carbon Dioxide Level 28 Chloride Level 106 Creatinine 0.62 Eosinophils # 0.1 Eosinophils % 1.5 Glucose Level 77 Hematocrit 32.5 L Hemoglobin 10.9 L Lymphocytes # 1.3 Lymphocytes % 33.5 Mean Corpuscular Hemoglobin 29.8 Mean Corpuscular Hemoglobin Concent 33.5 Mean Corpuscular Volume 89.0 Mean Platelet Volume 8.2 Monocytes # 0.3 Monocytes % 7.2 Neutrophils # 2.2 Neutrophils % 57.3 Nucleated Red Blood Cells # 0.0 Nucleated Red Blood Cells % 0.0 Platelet Count 190 Potassium Level 4.2 Red Blood Count 3.65 L Red Cell Distribution Width 13.4 Sodium Level 141 White Blood Count 3.8 #L Medications Medications Current Medications Heparin Sodium (Porcine) (Heparin (5000 Units/0.5 ml)) 5,000 unit Q12 SC Last administered on 06/05/16 09:00; Admin Dose 5,000 UNIT; Start 06/04/16 at 09:00 Senna 2 tab 2 tab DAILY PO Last administered on 06/05/16 08:25; Admin Dose 2 TAB; Start 06/04/16 at 09:00 Cefepime HCl (Maxipime 2gm/50 ml (Pmx)) 50 ml @ 100 mls/hr Q12 IVPB Last administered on 06/05/16 08:19; Admin Dose 100 MLS/HR; Start 06/04/16 at 09:00 Morphine Sulfate (morphine) 3 mg Q4H PRN IV PAIN Last administered on 08:14; Admin Dose 3 MG; Start 06/04/16 at 02:30 Acetaminophen/ Hydrocodone Bitart ([place] (7.5-325)) 2 tab Q4H PRN PO pain Last administered on 06/05/16 09:39; Admin Dose 2 TAB; Start 06/04/16 at 11:30 TRISHA SOLER Jun 05, 2016 12:00
--- NOTE | 2016-06-05 13:32 | RADRPT ---
PROCEDURE: Renal US. CLINICAL INDICATION: Flank pain. TECHNIQUE: Multiple sonographic images of the kidneys and urinary bladder were obtained. The imag es were reviewed on a PACS workstation. COMPARISON: No prior studies are available for comparison. FINDINGS: The right kidney measures 12.1 x 5.0 x 5.2 cm. The left kidney measures 11.4 x 5.6 x 5.2 cm. There is no renal mass. There is no hydronephrosis. There is no renal calculus. Renal parenchymal thickness and echogenicity is normal bilaterally. The perirenal regions are normal with no fluid collection or mass. The urinary bladder is not visualized. IMPRESSION: 1. Normal kidneys with no hydronephrosis or calculus. 2. Urinary bladder not visualized. 3. Otherwise unremarkable study. RPTAT: QQ .Jono Peters MD, MD Date Time Electronically viewed and signed by .Jono Peters MD, on 06/05/2016 13:32 .R/
[2016-06-05 19:47] VITALS: BP 107/58; RESP 20
[2016-06-06] MEDS: HYDROCODONE/APAP (7.5/325) TAB PO PRN (02:47)
[2016-06-06 06:50] LABS: BASOPHILS % 0.5 % (0.0-2.0); EOSINOPHILS # 0.1 10^3/ul (0.0-0.5); EOSINOPHILS % 1.9 % (0.0-7.0); HEMATOCRIT 32.9 % (37.0-47.0); HEMOGLOBIN 11.4 g/dl (12.0-16.0); LYMPHOCYTES % 23.9 % (15.0-51.0); MEAN CORPUSCULAR HEMOGLOBIN 30.5 pg (29.0-33.0); MEAN CORPUSCULAR HGB CONC 34.4 g/dl (32.0-37.0); MEAN CORPUSCULAR VOLUME 88.6 fl (82.0-101.0); MEAN PLATELET VOLUME 8.1 fl (7.4-10.4); MONOCYTE # 0.3 10^3/ul (0.3-0.9); MONOCYTES % 7.4 % (0.0-11.0); NEUTROPHIL # 2.7 10^3/ul (1.6-7.5); NEUTROPHILS % 66.3 % (39.0-77.0); PLATELET COUNT 188 10^3/UL (140-440); RED BLOOD COUNT 3.72 10^6/ul (4.20-5.40); RED CELL DISTRIBUTION WIDTH 13.7 % (11.5-14.5); UNCORRECTED WBC 4.1 10^3/ul (4.8-10.8); WHITE BLOOD COUNT 4.1 10^3/ul (4.8-10.8)
[2016-06-06 06:57] LABS: CONDITION 1
[2016-06-06 07:03] LABS: POTASSIUM 4.2 mmol/L (3.5-5.1)
[2016-06-06 07:06] LABS: CREATININE 0.6 mg/dl (0.44-1.00)
[2016-06-06 07:07] LABS: CALCIUM 8.9 mg/dl (8.4-10.2)
[2016-06-06 07:34] VITALS: BP 115/54; RESP 18
[2016-06-06] MEDS ORDERED: CIPR500T4 PO (08:48)
[2016-06-06] MEDS ORDERED: HYDR-3605 PO (08:48)
[2016-06-06] MEDS: SENNA TAB PO SCH (08:51)
[2016-06-06] MEDS: CEFEPIME 2GM/50 ML (PMX) 50 ML IVPB SCH (08:51)
[2016-06-06] MEDS: HEPARIN 5,000 UNIT/0.5 ML SYG SC SCH (09:13)
--- NOTE | 2016-06-06 11:13 | PDOCDIS ---
Discharge Instructions DIAGNOSIS Discharge Diagnosis: 1. acute pyelonephritis CONDITION Patient Condition: Stable HOME CARE INSTRUCTIONS: Diet Instructions: Low Fat /Cholesterol FOLLOW UP/APPOINTMENTS Appointments 1. Follow up with your primary care provider in one week TRISHA SOLER Jun 06, 2016 11:13
--- NOTE | 2016-06-06 14:56 | DS ---
Date/Time of Note Date/Time of Note DATE: 06/06/16 TIME: 14:53 Discharge Summary Admission/Discharge Info Admit Date/Time Jun 04, 2016 at 00:07 Discharge Date/Time Jun 06, 2016 at 12:50 Final Diagnosis 1. Acute pyelonephritis Patient Condition: Stable Hospital Course This is a 75-year-old female with past medical history of breast cyst removal and hernia repair who came to [facility] due to reports of right flank pain. Patient was in the ER for lower back pain and right flank pain 2 days prior to this admission. She was discharged at that time with diagnosis of UTI. Patient was prescribed antibiotic medication orally however she was reported to continue to have emesis and not tolerate oral medication. She denied any fevers or chills or chest pain or short of breath. When she came back to [facility] she remained afebrile. No leukocytosis noted. She did have previous films and a stress test positive. Patient did have symptoms consistent with pyelonephritis. She was optimized with IV antibiotics. During her course of stay she did improve. She did report resolution of her flank pain. Of note CT scan of her abdomen was also done that showed no evidence of acute intra-abdominal or pelvic pathology. No nephrolithiasis seen. No hydronephrosis seen. She did tolerate oral antibiotics will and she did tolerate analgesics as well. The plan of care was discussed with the patient and patient did verbalize her understanding. On the day of discharge patient was in stable condition Discharge process time is 40 minutes Discussed plan of care with Dr. Roberts Disposition: Home Home Meds Active Scripts Ciprofloxacin Hcl* (Ciprofloxacin Hcl*) 500 Mg Tablet, 500 MG PO BID, #24 TAB Prov:TRISHA SOLER 06/06/16 Hydrocodone/Acetaminophen (Hydrocodon-Acetaminoph 7.5-325) 1 Each Tablet, 2 TAB PO Q4H Y for pain, #30 TAB Prov:TRISHA SOLER 06/06/16 Acetaminophen* (Tylophen*) 500 Mg Capsule, 1 CAP PO Q6H Y for PAIN AND OR ELEVATED TEMP, #20 CAP Prov:JITENDRA VANN-C 06/01/16 Discontinued Scripts Cephalexin* (Keflex*) 500 Mg Capsule, 500 MG PO QID for 5 Days, CAP Prov:JITENDRA VANN PA-C 06/01/16 Follow-up Plan CONDITION Patient Condition: Stable HOME CARE INSTRUCTIONS: Diet Instructions: Low Fat /Cholesterol FOLLOW UP/APPOINTMENTS Appointments 1. Follow up with your primary care provider in one week Pending Labs Laboratory Tests Test 06/06/16 05:22 Anion Gap 12 (8-16) Basophils # 0.010^3/ul (0.0-0.1) Basophils % 0.5% (0.0-2.0) Blood Urea Nitrogen 15mg/dl (7-20) Calcium Level 8.9mg/dl (8.4-10.2) Carbon Dioxide Level 27mmol/L (21-31) Chloride Level 104mmol/L (97-110) Creatinine 0.60mg/dl (0.44-1.00) Eosinophils # 0.110^3/ul (0.0-0.5) Eosinophils % 1.9% (0.0-7.0) Glucose Level 92mg/dl (70-220) Hematocrit 32.9% (37.0-47.0) Hemoglobin 11.4g/dl (12.0-16.0) Lymphocytes # 1.010^3/ul (0.8-2.9) Lymphocytes % 23.9% (15.0-51.0) Mean Corpuscular Hemoglobin 30.5pg (29.0-33.0) Mean Corpuscular Hemoglobin Concent 34.4g/dl (32.0-37.0) Mean Corpuscular Volume 88.6fl (82.0-101.0) Mean Platelet Volume 8.1fl (7.4-10.4) Monocytes # 0.310^3/ul (0.3-0.9) Monocytes % 7.4% (0.0-11.0) Neutrophils # 2.710^3/ul (1.6-7.5) Neutrophils % 66.3% (39.0-77.0) Nucleated Red Blood Cells # 0.010^3/ul (0.0-0.0) Nucleated Red Blood Cells % 0.0/100WBC (0.0-0.0) Platelet Count 47663^3/UL (140-440) Potassium Level 4.2mmol/L (3.5-5.1) Red Blood Count 3.7210^6/ul (4.20-5.40) Red Cell Distribution Width 13.7% (11.5-14.5) Sodium Level 139mmol/L (135-144) White Blood Count 4.110^3/ul (4.8-10.8) TRISHA SOLER Jun 06, 2016 14:56
== END 2016-06-06 12:50 | disposition home or self-care (01) ==
LOC: E/R 20:46 → INTOOBSV 06-04 00:07 → MS2 06-04 00:07
PROVIDERS: ADMIT Internal Medicine; ATTEND Internal Medicine
DX: N10 Acute pyelonephritis (principal); I51.7 Cardiomegaly; K80.20 Calculus of gallbladder without cholecystitis without obstruction; K57.30 Diverticulosis of large intestine without perforation or abscess without bleeding; K44.9 Diaphragmatic hernia without obstruction or gangrene
CPT/HCPCS: 36415; 71010; 72072; 72100; 74176; 76775; 80048; 80053; 81001; 83690; 85025; 85610; 85730; 87086; 96374; 96375; 99285; G0378; J0692; J0696; J1644; J2270; J2405; J7030; J7040; 81003